=== PATIENT | female | born 1985 | race Caucasian/White ===

== ENCOUNTER 2019-02-21 20:46 | Emergency (ER) | payer MEDICAID ==
[~2019-02-21] VITALS: Ht 165.1 cm; Wt 133.4 kg
[2019-02-21 21:10] VITALS: Ht 165.1 cm; Wt 133.4 kg
[2019-02-21 23:14] VITALS: BP 139/78
== END 2019-02-21 23:14 | disposition home or self-care (01) ==
LOC: ED 20:46
DX: S76.811A Strain of other specified muscles, fascia and tendons at thigh level, right thigh, initial encounter (principal); X50.0XXA Overexertion from strenuous movement or load, initial encounter; Y93.89 Activity, other specified; Y92.89 Other specified places as the place of occurrence of the external cause; Y99.8 Other external cause status
CPT/HCPCS: J1885

== ENCOUNTER 2019-06-16 20:27 | Emergency (ER) | payer MEDICAID ==
[~2019-06-16] VITALS: Ht 165.1 cm; Wt 132.9 kg
[2019-06-16 20:39] VITALS: BP 157/92; Ht 165.1 cm; Wt 132.9 kg
== END 2019-06-16 23:07 | disposition home or self-care (01) ==
LOC: ED 20:27
DX: M54.12 Radiculopathy, cervical region (principal)

== ENCOUNTER 2019-08-22 18:05 | Emergency (ER) | payer MEDICAID ==
[~2019-08-22] VITALS: Ht 165.1 cm; Wt 137.0 kg
[2019-08-22 18:15] VITALS: Ht 165.1 cm; Wt 137.0 kg
[2019-08-22 19:48] VITALS: BP 139/81
== END 2019-08-22 19:48 | disposition home or self-care (01) ==
LOC: ED 18:05
DX: R51 Headache (principal); N83.209 Unspecified ovarian cyst, unspecified side; Z98.818 Other dental procedure status

== ENCOUNTER 2019-11-16 22:04 | Emergency (ER) | payer MEDICAID ==
[~2019-11-16] VITALS: Ht 165.1 cm; Wt 141.1 kg
[2019-11-16 22:11] VITALS: Ht 165.1 cm; Wt 141.1 kg
[2019-11-16 23:58] VITALS: BP 148/55
== END 2019-11-16 23:58 | disposition home or self-care (01) ==
LOC: ED 22:04
DX: R09.89 Other specified symptoms and signs involving the circulatory and respiratory systems (principal); Z98.890 Other specified postprocedural states; N83.209 Unspecified ovarian cyst, unspecified side
CPT/HCPCS: J7512

== ENCOUNTER 2019-12-14 14:43 | Emergency (ER) | payer MEDICAID ==
[~2019-12-14] VITALS: Ht 172.7 cm; Wt 140.2 kg
[2019-12-14 14:52] VITALS: Ht 172.7 cm; Wt 140.2 kg
[2019-12-14 15:16] LABS: microscopic required? NO
[2019-12-14 15:35] LABS: UA SPECIFIC GRAVITY >=1.030 (1.005-1.035); urine erythrocyte NEGATIVE (NEGATIVE)
[2019-12-14 16:10] LABS: BASOPHIL % 0.2 % (0-2)
[2019-12-14 16:11] LABS: PLATELET COUNT 428 x10^3mcL (130-400); RED CELL DISTRIBUTION WIDTH 17.2 % (11.5-14.5)
[2019-12-14 16:26] LABS: CARBON DIOXIDE 27.8 mmol/L (21-32); CHLORIDE SERUM 102 mmol/L (98-107); CREATININE SERUM 0.7 mg/dL (0.6-1.0); GFR1 > 60 mL/min; GLUCOSE SERUM 101 mg/dL (74-106); SODIUM SERUM 138 mmol/L (136-145)
[2019-12-14 16:31] LABS: ALBUMIN 3.2 g/dL (3.4-5.0); ALKALINE PHOSPHATASE 112 U/L (46-116); ALT/SGPT 38 U/L (14-59); AST/SGOT 17 U/L (15-37); BILIRUBIN TOTAL 0.37 mg/dL (0.20-1.00); LIPASE 57 IU/L (73-393); TOTAL PROTEIN, SERUM 7.3 g/dL (6.4-8.2)
[2019-12-14 17:12] VITALS: BP 163/86
== END 2019-12-14 17:19 | disposition home or self-care (01) ==
LOC: ED 14:43
PROVIDERS: Emergency Medicine
DX: N83.201 Unspecified ovarian cyst, right side (principal); Z98.890 Other specified postprocedural states; Z90.89 Acquired absence of other organs
CPT/HCPCS: 36415; J1885; Q0092

== ENCOUNTER 2020-06-20 18:21 | Emergency (ER) | payer MEDICAID ==
[~2020-06-20] VITALS: Ht 165.1 cm; Wt 143.8 kg
[2020-06-20 18:30] VITALS: Ht 165.1 cm; Wt 143.8 kg
[2020-06-20 19:25] VITALS: BP 173/98
== END 2020-06-20 19:25 | disposition home or self-care (01) ==
LOC: ED 18:21
DX: S01.401D Unspecified open wound of right cheek and temporomandibular area, subsequent encounter (principal); E66.9 Obesity, unspecified; Z98.890 Other specified postprocedural states; X58.XXXD Exposure to other specified factors, subsequent encounter

== ENCOUNTER 2020-08-28 21:08 | Emergency (ER) | payer MEDICAID, SELFPAY ==
[~2020-08-28] VITALS: Ht 165.1 cm; Wt 136.1 kg
[2020-08-28 21:09] VITALS: Ht 165.1 cm; Wt 136.1 kg
[2020-08-28 23:06] VITALS: BP 148/102
== END 2020-08-28 23:06 | disposition home or self-care (01) ==
LOC: ED 21:08
DX: U07.1 COVID-19 (principal); R51.9 Headache, unspecified; Z98.890 Other specified postprocedural states